=== PATIENT | male | born 2005 | race Caucasian/White ===

== ENCOUNTER 2025-08-20 23:22 | Observation (INO) | payer BC, SELFPAY ==
[2025-08-20 17:37] VITALS: BP 120/75
--- NOTE | 2025-08-20 18:33 | ED.GENMED ---
History of Present Illness
<FADI Amaya - Last Filed: 08/20/25 21:38>
General
Chief Complaint: Skin Problem
Source: patient
Exam Limitations: none
Time Seen by Provider: 08/20/25 18:07
Nursing documentation reviewed up to this point in time: agreed with
History of Present Illness
History of Present Illness:
Patient is a 20-year-old male brought to the ER by family for evaluation. On Tuesday patient reports he popped a pimple in his right nares and on Tuesday morning woke up with swelling to the area. On Tuesday he went to urgent care was given
Augmentin. Tuesday night however he developed chills and had a low-grade fever of 99 and went to [facility] emergency department. He reports while there he was given doxycycline iv and discharged with clindamycin. On Tuesday morning his swelling
became worse and he went back to the ER. He had a CAT scan which was negative for abscess. He was discharged on Keflex. AT That time he was given an IV antibiotic as well. He continues to complain of increasing facial swelling. Mom reports
swelling is actually getting worse. Mom reports patient's right side of his face is swelling as well as his upper lip. He did have the chills last night.
Phy Exam
<FADI Amaya - Last Filed: 08/20/25 21:38>
General Physical Exam
General Presentation: no apparent distress
General age: appears stated age
General Skin: warm and dry
General Habitus: normal
General Mental: alert
General Hydration: appears well hydrated
ENT Exam
ENT Exam: other (pt with visible pimple to right nares associated with right sided facial swelling ; + swelling to upper lip )
Neurological Exam
Neurological Exam: alert and oriented x3
Musculoskeletal Exam
Musculoskeletal Exam: full ROM
Skin Exam
Skin Exam: normal color and warm/dry
Psychiatric Exam
Psychiatric Exam: normal mood/affect
Course
<FADI Amaya - Last Filed: 08/20/25 21:38>
Orders/Labs/Results
Orders:
Orders
08/20/25 18:32
CT Facial Bones W/ Iv Contrast Urgent
Comment:
Reason For Exam: right sided facial swelling
IV Insert/Care/Rem.- Treatment PRN
08/20/25 18:42
Complete Blood Count/With Diff Urgent
Comprehensive Metabolic Panel Urgent
Abnormal Lab Results
08/20/25
18:42
RBC 4.67 L 10^6/uL
(4.70-6.10)
Hct 38.8 L %
(39.0-52.0)
Absolute Monos (auto) 0.8 H 10^3/uL
(0.1-0.6)
Monocytes % 9.4 H %
(1.7-9.3)
Carbon Dioxide 32 H mmol/L
(22-30)
BUN 8 L mg/dl
(9-20)
Glucose 103 H mg/dl
(70-99)
08/20/25 18:42
08/20/25 18:42
Vital Signs
Initial and Last Documented VS:
Initial Vital Signs
Temp Pulse Resp BP Pulse Ox
98.4 F 76 17 120/75 99
08/20/25 17:37 08/20/25 17:37 08/20/25 17:37 08/20/25 17:37 08/20/25 17:37
Last Documented Vital Signs
Temp Pulse Resp BP Pulse Ox
98.4 F 76 17 124/86 95
08/20/25 17:37 08/20/25 17:37 08/20/25 17:37 08/20/25 18:42 08/20/25 21:30
Engineering Manager consulted with Physician
Engineering Manager consulted with physician?: Yes
Name of Physician Consulted: Lux
<Tejas Wasserman, DO - Last Filed: 08/20/25 21:19>
Orders/Labs/Results
Orders:
Orders
08/20/25 18:32
CT Facial Bones W/ Iv Contrast Urgent
Comment:
Reason For Exam: right sided facial swelling
IV Insert/Care/Rem.- Treatment PRN
08/20/25 18:42
Complete Blood Count/With Diff Urgent
Comprehensive Metabolic Panel Urgent
Abnormal Lab Results
08/20/25
18:42
RBC 4.67 L 10^6/uL
(4.70-6.10)
Hct 38.8 L %
(39.0-52.0)
Absolute Monos (auto) 0.8 H 10^3/uL
(0.1-0.6)
Monocytes % 9.4 H %
(1.7-9.3)
Carbon Dioxide 32 H mmol/L
(22-30)
BUN 8 L mg/dl
(9-20)
Glucose 103 H mg/dl
(70-99)
08/20/25 18:42
08/20/25 18:42
Vital Signs
Initial and Last Documented VS:
Initial Vital Signs
Temp Pulse Resp BP Pulse Ox
98.4 F 76 17 120/75 99
08/20/25 17:37 08/20/25 17:37 08/20/25 17:37 08/20/25 17:37 08/20/25 17:37
Last Documented Vital Signs
Temp Pulse Resp BP Pulse Ox
98.4 F 76 17 124/86 95
08/20/25 17:37 08/20/25 17:37 08/20/25 17:37 08/20/25 18:42 08/20/25 21:30
<FADI Amaya - Last Filed: 08/20/25 21:38>
MDM/Problems Addressed
Differential Diagnosis Includes:
Not limited to facial cellulitis, abscess
MDM/Problems Addressed:
Patient with facial swelling CAT scan consistent with cellulitis despite patient being on antibiotics for the past several days. he was given IV push antibiotics at [facility] during 2 ER visits however despite Keflex and other recent
antibiotics patient has had worsening swelling over the right side of his face. This started with a pimple to his right nares. There is still a pimple noted in his right nares with obvious facial swelling and lip swelling. With worsening symptoms
despite normal labs and no fever here in the ER will admit. Patient has complained of chills. Patient evaluated by ED physician who agrees with assessment and plan.
<FADI Amaya - Last Filed: 08/20/25 21:38>
*Radiology
Radiology exam reviewed: radiology read reviewed
*Pulse Oximetry
SaO2: 99
Oxygen Mode of Delivery: Room air
Patient hypoxic: no
*Critical Care Note
Total Time (30-74mins, 75-104mins- exclusive of procedures): Not Applicable
ED Attending Note
<FADI Amaya - Last Filed: 08/20/25 21:38>
-
Portions of this chart may have been created with voice recognition software.� Occasional wrong word or��sound alike� substitutions may have occurred due to the inherent limitations of voice recognition software.
<Tejas Wasserman DO - Last Filed: 08/20/25 21:19>
ED Attending Note
Patient seen and examined by attending physician: Yes
I performed the substantive portion of visit, reviewed & personally made and approve the management plan that is documented in note by myself or MARCE.: Yes
ED Attending Note:
The patient has soft tissue swelling at the upper lip and more so on the right side of the face near the nasolabial fold. There is no palpable abscess and white count is normal. There is no visualized abscess on CT. However mother very concerned
that he is failing outpatient management. She states that the swelling gets worse and worse. Will plan IV antibiotics. He has already been to another ER twice without improvement and continues to worsen.
Discharge Plan
Departure
Patient Disposition: Admit
Date of Disposition: 08/20/25
Time of Disposition: 21:21
Admit to: Med/Surg
Admit to doctor: hospitalist
Presentation/result/management discussed w/ accepting MD/DO: Hospitalist
Patient with high blood pressure during this ER visit?: No
Condition: Fair
Covid-19: Not Applicable
Discharge Problem:
facial cellulitis
Referrals:
NONE,* [Family Provider, Internal Medicine]
Interventions
Interventions:
*Risk Screen - Suicide Last Done: 08/20/25 17:39
*General Assessment Last Done: 08/20/25 17:39
*Neglect/Abuse Screening Last Done: 08/20/25 17:39
*ED COVID-19 Vaccine History Last Done: 08/20/25 17:39
*ED Influenza Vaccine History Last Done: 08/20/25 17:39
Discharge Date and Time
Print Language: SWEDISH
[2025-08-20 18:42] VITALS: BP 124/86
[2025-08-20 18:43] VITALS: BMI 23.4
[2025-08-20 18:48] LABS: Hematocrit 38.8 % (39.0-52.0); Hemoglobin 13.4 g/dL (13.0-18.0); Mean Corp Hgb Conc. 34.5 g/dL (33.0-37.0); Mean Corpuscular Volume 83.1 fL (80.0-94.0); Nucleated Red Blood Cells % 0 % (-); Platelet Count 221 10^3/uL (130-400); Red Cell Dist. Width 13.2 % (11.5-14.5)
[2025-08-20 19:09] LABS: ALT (SGPT) 21 U/L (0-50); AST (SGOT) 24 U/L (17-59); Albumin 4.7 g/dl (3.5-5.0); Alkaline Phosphatase 62 U/L (38-126); Blood Urea Nitrogen 8 mg/dl (9-20); Calcium 9.7 mg/dl (8.4-10.2); Carbon Dioxide 32 mmol/L (22-30); Chloride 100 mmol/L (98-107); Estimated Creatinine Clearance > 125 ml/min; Glucose 103 mg/dl (70-99); Potassium 4.2 mmol/L (3.5-5.1); Sodium 138 mmol/L (135-145); Total Protein 8.0 g/dl (6.3-8.2); eGFR > 60.00
--- NOTE | 2025-08-20 22:15 | HPS.HSE ---
Family Physician
-
Family Physician: * NONE
Chief Complaint
-
facial cellulitis
History of Present Illness
Patient is a 20-year-old male with no significant past medical history who presented to [facility] ED for evaluation of facial cellulitis. Patient reports in grown hair or pimple in right nares on Tuesday afternoon that he popped. He reports waking
Tuesday morning with swelling to the area. Patient was seen Tuesday in Urgent Care and prescribed Augmentin, Tuesday evening he was seen in [facility] ED as he developed chills and a fever of 99. [facility] treated him with IV doxycycline and
discharged with prescription for clindamycin. Patient reports edema and pain increased and he returned to [facility] ED where he was administered another dose of IV doxycycline and discharged with instructions to continue clindamycin and added
Keflex. A CT scan was completed and negative for abscess. Mom is at bedside and reports that the swelling is significant to patients baseline and has increasingly got worse despite antibotic treatments. Denies difficulty breathing, numbness or
tingling.
Medical History
Past Medical History
Past Medical History: Reports Other
Additional Past Medical History:
acne
depression
Past Surgical History: Reports None
Social History
Tobacco: Non-smoker
Alcohol: Occasional
Drug: None
Personal: Single
Living: With Family
Employment: Other (stationary steam engineer student )
Family History
Family History: Other (Father: HTN, migraines; Mother: anxiety )
Allergies / Home Medications
Allergies reflects when Allergies were last updated in [facility].
Home Medications with original date entered in [facility]
Allergy/Medication List:
Allergies
Allergy/AdvReac Type Severity Reaction Status Date / Time
No Known Allergies Allergy Unverified 08/20/25 17:38
Home Medications
escitalopram oxalate 20 mg tablet 20 mg PO HS 08/20/25
isotretinoin 30 mg capsule 60 mg PO HS 08/20/25
Review of Systems
-
History Source: Patient
Constitutional: Reports Fever and Chills
EENT: Reports Mouth Pain, Mouth Swelling and Other (right facial edema and pain ); Denies Sore Throat
Respiratory: Denies Cough or Trouble Breathing
Cardiac: Denies Chest Pain, Diaphoresis, Palpitations or Syncope
Abdomen/GI: Denies Abdominal Pain, Nausea, Vomiting or Diarrhea
: Denies Dysuria, Frequency or Urgency
Musculoskeletal: Denies Joint Pain
Skin: Denies Rash
Neurological: Denies Dizzy, Headache, Weakness or Numbness
Hematologic/Lymphatic: Denies Bleeding
Physical Exam
Vital Signs
Vital Signs
Temp Pulse Resp BP Pulse Ox
98.4 F 76 17 124/86 95
08/20/25 17:37 08/20/25 17:37 08/20/25 17:37 08/20/25 18:42 08/20/25 21:30
Physical Exam
General: Well Developed, Well Nourished, No Apparent Distress, Comfortable and Conversant
HEENT: NormoCephalic and Moist mucous membranes
Respiratory: Clear and Non Labored Respirations; No Wheezes
Cardiac: S1/S2 and Regular Rhythm; No Murmur, Rub or Gallop
GI: Soft, Non Tender, Non Distended and Normal Bowel Sounds
Musculoskeletal: No Clubbing, No Cyanosis and No Edema
Skin: Warm and IV/Catheter Site
Neuro: Awake and AO x 3
Hematologic/Lymphatic: No Lymphadenopathy
Psych: Calm
Laboratory Results
-
08/20/25 18:42
08/20/25 18:42
Laboratory Results
Total Bilirubin 0.4 mg/dl (0.2-1.3) 08/20/25 18:42
AST 24 U/L (17-59) 08/20/25 18:42
ALT 21 U/L (0-50) 08/20/25 18:42
Alkaline Phosphatase 62 U/L (38-126) 08/20/25 18:42
Data Reviewed
-
CT Scan: Report Reviewed by me (Facial bones: 1. Mild right cheek cellulitis. No loculated fluid collections or suspicious dental findings.)
Lab Data: Labs Reviewed by me
Impression/Plan
-
IMPRESSION/PLAN:
#facial cellulitis 2/2 pimple/in-grown hair popped
Facial bones CT: 1. Mild right cheek cellulitis. No loculated fluid collections or suspicious dental findings.
MRSA screen: pending
- Admit to med/surg
- IV vanco
- supportive care
#acne
- continue isotretinoin
#depression
- continue escitalopram
Code status: full code
DVT prophylaxis: lovenox sq
--- NOTE | 2025-08-20 22:20 | W.PN.UPDATE ---
Update Note
Progress Note Update
Patient seen in conjunction with FADI. I agree with the findings and history and physical. I concur with assessment and plan.
Briefly, this is a 20-year-old with no known signal past medical history who presents to the emergency department with worsening persistent swelling and redness over the right maxillary and inferior orbital face. Patient and family reports that
symptoms began about 4 days ago and he was seen at outside hospital on Tuesday started on IV antibiotics. He initially did get documenting at urgent care prior to arrival in the emergency department and family reported that he never responded to
oxacillin based medications. Ultimately was given IV doxycycline in the emergency department. Later on he was given clindamycin and Keflex. Despite antibiotics over the last 24 hours family reports that has been increasing redness and swelling.
He reports subjective fevers. Reports some tenderness to palpation. He denies any recent trauma. He denies any recent tooth infection. He apparently had evaluation for sore throat a few weeks ago and was treated with doxycycline at that time.
In the Emergency Department he was afebrile hemodynamically stable and in no acute distress. Blood pressure 120/80 with a pulse 76 satting 98% on room air. CT face is negative for any abscess or fluid collection. CBC is unremarkable. Electrolyte
BUN/creatinine were normal.
Assessment and plan
- Right facial/preseptal cellulitis -hemodynamically stable and in no acute distress however appears to have failed oral antibiotics although it appears that not enough time being given. He states he does not respond to amoxicillin or Augmentin in
the past, he has been on clindamycin now with ongoing symptoms. No signs of abscess, no fluid collection on CT facial.
- Admit to MedSurg observation
- Blood cultures afebrile
- IV vancomycin for now
- ID consultation
DVT prophy�SCDs
CODE STATUS�full code
[2025-08-21 01:36] VITALS: BP 129/75
[2025-08-21 01:37] VITALS: BMI 20.1
[2025-08-21] MEDS: VANCOCIN 540 MG IV (01:52)
[2025-08-21] MEDS: BENADRYL 25 MG IV (04:21)
--- NOTE | 2025-08-21 04:22 | W.PN.UPDATE ---
Update Note
Progress Note Update
Patient developed redness on his face, shoulders and upper back and pruritus while Vancomycin infusing. Vancomycin stopped by RN. Benadryl 25 mg IV x 1 ordered for reaction.
Patient states he has no SOB, scratchy throat, palpitations. Discussed w/admitting provider, Vancomycin discontinued, ordered Ceftriaxone 1 gram IV daily and Metronidazole 500 mg IV Q8H. ID consulted.
--- NOTE | 2025-08-21 05:35 | PTCARENOTE ---
08/21: pt placed on vancocin iv for cellulitis. antibiotics infused. pt skin became red and itchy. Complaints of itching scalp. community support associate notified. pt given iv benadryl
[2025-08-21] MEDS: STERILE WATER FOR INJECTION 10 ML IV (05:59)
[2025-08-21] MEDS: ROCEPHIN 1000 MG IV (05:59)
[2025-08-21] MEDS: FLAGYL 500 MG 100 IV (06:30)
[2025-08-21 07:00] VITALS: BP 118/66
--- NOTE | 2025-08-21 09:59 | W.PN.HOSP.TC ---
Today's Communication/Plan
-
see PN
Assessment / Plan
Assessment / Plan
20yo M with PMHX of severe acne on retinoids and anxiety came with 5 days of worsening R face redness and swelling accompanied with fevers. Started with pimple in the R nostril that broke. Patient went to urgent care first, was prescribed Augmentin,
but took only one dose and since had fevers 5 hours later - went to [facility] ED. Had Doxy IV and discharged on Clindamycin, took 4 doses and went to ED again since swelling did not improve, was given one more IV Doxy anddischarged on Keflex, took 4
doses of it and since swelling was still persistent - cme to ED. DUring Vanco injection dveloped 'red man' reaction.
A/P:
#R fascial cellulitis
orbits not involved
CT with cellulitis only
Patient does not report tooth ache
No leukocytosis, no left shift on CBC
With multiple Abx switchs - unlikely failure
ID consult placed upon admission - will await their opinion so not to do multiple Abx changes
Currently on Rocephin/Flagyl after red man reaction
MRSA screen pending
#EKG with diffuse J point elevation
no chest pain noted
#Anxiety/depression d/o
#Severe acne
cont home meds
EKG with non-prolonghed QTc of 411ms
DVT ppx - enourage ambulation
FUll code
I have spent at least 51min reviewing chart, test results, communication with consultants and providing direct patient care
Anticipated Discharge: Within 24 hours
Subjective/Interval History
-
Date of Service: August 21, 2025
Objective Data
-
Vital Signs:
Vital Signs
Temp Pulse Resp BP Pulse Ox
97.7 F 61 20 118/66 95
08/21/25 07:00 08/21/25 07:00 08/21/25 07:00 08/21/25 07:00 08/21/25 07:00
I&O
08/20/25 08/21/25 08/22/25
06:59 06:59 06:59
Intake Total 240 / 240
Balance 240 / 240
Review of Systems
-
History Source: Patient
All other systems: Reviewed and negative
Physical Exam
-
General: No Apparent Distress
HEENT: Normocephalic and Other (minimal R cheek swelling)
GI: Soft, Nontender and Nondistended
Skin: Warm
Neuro: Awake, Alert, Oriented and AO x 3
Psych: Calm
--- NOTE | 2025-08-21 12:10 | CON.ID ---
Consultation
-
Date/Time Consultation Requested: 08/21/25 4:25
Date/Time Consultation Performed: 08/21/25 12:11
Requesting Provider: Mariely AUSTIN
Performing Provider: Dr Barber
Reason for Consultation: facial cellulitis, failed O/P tx, reaction to vancomycin
Chief Complaint / Past History
Chief Complaint
facial cellulitis
History of Present Illness
Mr Knapp is a 20 year old male without significant past medical history who presented to here for evaluation of facial cellulitis. Patient reports in grown hair or pimple in right nares on Tuesday afternoon that he popped. He reports waking
Tuesday morning with swelling to the area. Patient was seen Tuesday in Urgent Care and prescribed Augmentin, Tuesday evening he was seen in [facility] ED as he developed chills and a fever of 99. [facility] treated him with IV doxycycline and
discharged with prescription for clindamycin and doxycycline. Patient reports edema and pain increased and he returned to [facility] ED where he was administered another dose of IV doxycycline and discharged with instructions to continue clindamycin
and added Keflex. A CT scan was completed and negative for abscess. Mom reports that the swelling is significant to patients baseline and has increasingly got worse despite antibiotic treatments. Denies difficulty breathing, numbness or tingling.
No trauma or tooth infections Then after admission here he was started on vancomycin however developed red man syndrome which was treated with benadryl and stopping the infusion. The antibiotics were switched to ceftriaxone and metronidazole. ID
is consulted for assistance with management.
Past History
Additional Past Medical History:
acne
depression
Past Surgical History: None
Allergy History:
No Known Allergies Allergy (Unverified 08/20/25 17:38)
Medications Reviewed: Yes
Social History
Tobacco: Non-Smoker
Alcohol: Occasional
Drug: None
Family History
Family History: Not Pertinent
Review of Systems
Review of Systems
General: Fever and Chills
EENT: Reports Mouth Pain, Mouth Swelling and Other (right facial edema and pain); Denies Sore Throat
Respiratory: Denies Cough or Trouble Breathing
Cardiac: Denies Chest Pain, Diaphoresis, Palpitations or Syncope
Abdomen/GI: Denies Abdominal Pain, Nausea, Vomiting or Diarrhea
: Denies Dysuria, Frequency or Urgency
Musculoskeletal: Denies Joint Pain
Skin: Denies Rash
Neurological: Denies Dizzy, Headache, Weakness or Numbness
Hematologic/Lymphatic: Denies Bleeding
Vital Signs
Temp Pulse Resp BP Pulse Ox
97.7 F 61 20 118/66 95
08/21/25 07:00 08/21/25 07:00 08/21/25 07:00 08/21/25 07:00 08/21/25 07:00
Physical Exam
Physical Exam
Constitutional: No Acute Distress
Head: Other (mild swelling within the R nare, external face no swelling tenderness or drainage)
Cardiovascular: Regular Rate and S1/S2; Negative Murmur or Rub
Pulmonary: Clear and Symmetric; Negative Wheezes, Rales or Rhonchi
Gastrointestinal: Soft, Non Tender, Non Distended and Normal Bowel Sounds
Skin: Warm and Dry; Negative Rash or Jaundice
Lab / Diagnostic Study Results
08/20/25 18:42
08/20/25 18:42
Abs Immat Gran (auto) 0.0 10^3/uL (0-0.05) 08/20/25 18:42
Absolute Neuts (auto) 5.2 10^3/uL (1.4-6.5) 08/20/25 18:42
Absolute Lymphs (auto) 2.6 10^3/uL (1.2-3.4) 08/20/25 18:42
Absolute Monos (auto) 0.8 10^3/uL (0.1-0.6) H 08/20/25 18:42
Absolute Basos (auto) 0.0 10^3/uL (0-0.2) 08/20/25 18:42
Immature Gran % 0.3 % (0-0.5) 08/20/25 18:42
Neutrophils % 59.3 % (42.2-75.2) 08/20/25 18:42
Lymphocytes % 29.4 % (20.5-51.1) 08/20/25 18:42
Monocytes % 9.4 % (1.7-9.3) H 08/20/25 18:42
Eosinophils % 1.4 % (0-6) 08/20/25 18:42
Basophils % 0.2 % (0-2) 08/20/25 18:42
Microbiology Results
Micro:
08/21/25 01:41 MRSA Screen - Pending
Nose
Assessment / Plan
Facial Cellulitis - mild
- restart vancomycin - run slowly for history of red man syndrome
- a MRSA screen is also pending
- stop ceftriaxone/metronidazole
- likely transition to bactrim in a day or so when symptoms begin to improve
--- NOTE | 2025-08-21 12:46 | PHA.VAN.IN ---
Assessment
- Assessment
Renal Function: Appears similar to baseline
AUC Dosing Plan
- Dosing Variables
Dosing Weight (kg): 67
Dosing CrCl (ml/min): 125
Vd coefficient (L/kg): 0.7
- Empiric Dosing
Initial / Loading Dose: 2000mg - 08/21 01:52 - infusion stopped early due to infusion reaction
Maintenance Regimen: Vanc 750mg Q8H infused over 90 minutes
Estimated AUC (mcg*h/mL): 468
Estimated Peak (mcg*h/mL): 27.6
Estimated Trough (mcg/ml): 13
Estimated Half Life (H): 6.4
- Monitoring
No levels ordered at this time: consider levels in next few days
Pharmacokinetics Vancomycin I
- -
Patient Age: 20
Patient Sex: Male
Vancomycin Day #: 1
Indication: Skin And Soft Tissue
Requesting Provider: Dr. Barber
Pertinent Antimicrobial Allergies:
NKDA
Height / Weight:
Height 6 ft
Actual Weight 67.177 kg
- Vital Signs / Lab Results
Temp Pulse Resp BP Pulse Ox
97.7 F 61 20 118/66 95
08/21/25 07:00 08/21/25 07:00 08/21/25 07:00 08/21/25 07:00 08/21/25 12:23
Lab Results - Hematology
08/20/25
18:42
WBC 8.8
Lab Results - Chemistry
08/20/25
18:42
BUN 8 L
Creatinine 0.9
Estimated Creat Clear > 125
Albumin 4.7
[2025-08-21] MEDS: VANCOCIN 150 IV ×2 (13:38→21:18)
--- NOTE | 2025-08-21 13:55 | CM ---
Reviewed the chart notes and spoke with the patient and his mother at the bedside. The patient is admitted under observational status. The observational letter was provided and explained. The patient had no questions with regards to the letter.
The patient resides with his mother when not in school in a two story home with one step to enter. The patient reports no DME/VN/SNF int he past. The patient confirmed his pharmacy of choice is [facility] [address] [facility] [address] [place]. RODRIGUEZ
continues to be available to patient/family and is monitoring medical plan for needs at discharge.
Plan: Discharge to home when medically stable. No needs anticipated at this time.
[2025-08-21 15:30] VITALS: BP 118/77
--- NOTE | 2025-08-21 15:33 | PTCARENOTE ---
Vancomycin 750mg IV administered at reduced rate of 100ml/hr per order. No new redness observed. Pt denies pruritus.
[2025-08-21] MEDS: LOVENOX 40 MG SC (17:19)
[2025-08-21] MEDS: LEXAPRO 20 MG PO (21:18)
[2025-08-21 23:25] VITALS: BP 121/71
--- NOTE | 2025-08-22 02:11 | VATNOTE ---
Called by PCN to evaluate Right AC IV site due to redness and Pain no swelling noted at or around site. Vanco infusing advised to stop infusion. New line placed Right AC line d/c heat applied with elevation. Will continue to monitor area.
[2025-08-22] MEDS: VANCOCIN 150 IV ×2 (05:55→14:24)
[2025-08-22 07:00] VITALS: BP 116/67
--- NOTE | 2025-08-22 08:33 | W.PN.ID1 ---
Date of Service
Date of Service: August 22, 2025
Today's Communication
- transition to bactrim for a 7 day course
Assessment / Plan
Facial Cellulitis - mild
- transition to bactrim for a 7 day course
- note negative mrsa screen
Chief Complaint
-: Other (facial cellulitis)
Subjective / Review of Systems
afebrile
bp stable
tolerating current therapies
'I feel much better'
Vital Signs / Physical Exam
Vital Signs
Vital Signs
Temp Pulse Resp BP Pulse Ox
97.9 F 70 20 121/71 97
08/21/25 23:25 08/21/25 23:25 08/21/25 23:25 08/21/25 23:25 08/21/25 23:25
Physical Exam
Constitutional: No Acute Distress
Head: Other (small area of induration within the R nare)
Cardiovascular: Regular Rate and S1/S2; Negative Murmur or Rub
Pulmonary: Clear and Symmetric; Negative Wheezes or Rales
Gastrointestinal: Soft, Non Tender, Non Distended and Normal Bowel Sounds
Skin: Warm and Dry; Negative Rash or Jaundice
Objective Data
Lab Data
Lab Results
08/20/25 18:42
08/20/25 18:42
Estimated Creat Clear > 125 ml/min 08/20/25 18:42
Total Bilirubin 0.4 mg/dl (0.2-1.3) 08/20/25 18:42
AST 24 U/L (17-59) 08/20/25 18:42
ALT 21 U/L (0-50) 08/20/25 18:42
Alkaline Phosphatase 62 U/L (38-126) 08/20/25 18:42
Most recent labs reviewed.
Micro Results:
08/21/25 01:41 MRSA Screen - Pending
Nose
Care Review
Plan reviewed with: Physician (Dr De Santiago - antibiotics)
--- NOTE | 2025-08-22 09:52 | CM ---
Reviewed the chart notes. CM continues to be available to patient/family and is monitoring medical plan for needs at discharge.
Plan: Discharge to home when medically stable. No needs anticipated at this time.
--- NOTE | 2025-08-22 12:00 | W.PN.HOSP.TC ---
Today's Communication/Plan
-
pending final ID reccs
Assessment / Plan
Assessment / Plan
20yo M with PMHX of severe acne on retinoids and anxiety came with 5 days of worsening R face redness and swelling accompanied with fevers. Started with pimple in the R nostril that broke. Patient went to urgent care first, was prescribed Augmentin,
but took only one dose and since had fevers 5 hours later - went to [facility] ED. Had Doxy IV and discharged on Clindamycin, took 4 doses and went to ED again since swelling did not improve, was given one more IV Doxy and discharged on Keflex, took 4
doses of it and since swelling was still persistent - cme to ED. During Vanco injection developed 'red man' reaction, however tolerated slower rate as recommended by ID. As discussed with ID - with significant improvement reasonable to dc on
Bactrim for 7 days home
A/P:
#R fascial cellulitis
orbits not involved
CT with cellulitis only
Patient does not report tooth ache
No leukocytosis, no left shift on CBC
With multiple Abx switch - unlikely failure
ID consult placed upon admission - Vanco, pending final reccs
Currently on Rocephin/Flagyl after red man reaction
MRSA screen neg
#EKG with diffuse J point elevation
no chest pain noted
#Anxiety/depression d/o
#Severe acne
cont home meds
EKG with non-prolonged QTc of 411ms
DVT ppx - encourage ambulation
FUll code
I have spent at least 36min reviewing chart, test results, communication with consultants and providing direct patient care
Anticipated Discharge: Within 24 hours
Subjective/Interval History
-
Date of Service: August 22, 2025
Objective Data
-
Vital Signs:
Vital Signs
Temp Pulse Resp BP Pulse Ox
97.8 F 80 20 116/67 97
08/22/25 07:00 08/22/25 07:00 08/22/25 07:00 08/22/25 07:00 08/22/25 07:00
I&O
08/21/25 08/22/25 08/23/25
06:59 06:59 06:59
Intake Total 240 / 240 2019
Balance 240 / 240 2019
Review of Systems
-
History Source: Patient
All other systems: Reviewed and negative
Physical Exam
-
General: No Apparent Distress
HEENT: Normocephalic and Good Dentition
Neuro: Awake, Alert, Oriented and AO x 3
Psych: Calm
--- NOTE | 2025-08-22 14:55 | W.DCSUMMARY ---
Discharge Summary
Discharge Data
Date of Admission: 08/20/25
Date of Discharge: 08/22/25
-
Pending Results: No
Hospital Course
20yo M with PMHX of severe acne on retinoids and anxiety came with 5 days of worsening R face redness and swelling accompanied with fevers. Started with pimple in the R nostril that broke. Patient went to urgent care first, was prescribed Augmentin,
but took only one dose and since had fevers 5 hours later - went to [facility] ED. Had Doxy IV and discharged on Clindamycin, took 4 doses and went to ED again since swelling did not improve, was given one more IV Doxy and discharged on Keflex, took 4
doses of it and since swelling was still persistent - cme to ED. During Vanco injection developed 'red man' reaction, however tolerated slower rate as recommended by ID. As discussed with ID - with significant improvement reasonable to dc on
Bactrim for 7 days home
I have spent at least 36min reviewing chart, test results, communication with consultants and providing direct patient care
Patient was managed for:
#R fascial cellulitis
#EKG with diffuse J point elevation
#Anxiety/depression d/o
#Severe acne
Discharge Plan
-
Patient Disposition: Home (Routine Discharge)
Discharge Diagnosis/Procedures: fascial cellulitis
Diet: Regular
Activity: As tolerated
Referrals:
NONE,* [Family Provider, Internal Medicine]
Prescriptions:
New
sulfamethoxazole-trimethoprim [Bactrim DS] 800-160 mg tablet
1 tab PO Q12H Qty: 14 0RF
Continued
escitalopram oxalate 20 mg tablet
20 mg PO HS
isotretinoin 30 mg capsule
60 mg PO HS
Discharge Orders:
Discharge Patient (As Directed); Ordered 08/22/25
Ordered By: Liborio De Santiago
Discharge Date and Time
Print Language: MONEGASQUE
[2025-08-22 15:30] VITALS: BP 126/70
--- NOTE | 2025-08-22 16:22 | PHA.VAN.FU ---
Vancomycin Assessment / Plan
- Assessment
Renal Function: No New Labs Today
- Dosing Plan
Continue: Vanc 750mg Q8H
- Monitoring Plan
No level(s) ordered at this time: planned to be discharged on PO antibiotics
Monitoring Comments: will obtain levels if vanco course prolonged
- Follow Up
Pharmacy will continue to follow.
Vancomycin Follow UP
- -
Patient Age: 20
Patient Sex: Male
Vancomycin Day #: 2
Indication: Skin And Soft Tissue
Requesting Provider: Dr. Barber
Pertinent Antimicrobial Allergies:
NKDA
Height / Weight:
Height 6 ft
Actual Weight 67.177 kg
- Vital Signs / Lab Results
Temp Pulse Resp BP Pulse Ox
97.5 F 69 20 126/70 97
08/22/25 15:30 08/22/25 15:30 08/22/25 15:30 08/22/25 15:30 08/22/25 15:30
Lab Results - Hematology
08/20/25
18:42
WBC 8.8
Lab Results - Chemistry
08/20/25
18:42
BUN 8 L
Creatinine 0.9
Estimated Creat Clear > 125
Albumin 4.7
Microbiology Results
08/21/25 01:41 MRSA Screen - Final
Nose No Methicillin Resistant Staphylococcus aureus isolated.
== END 2025-08-22 18:13 | disposition home or self-care (01) ==
LOC: 2 NORTH 23:22
PROVIDERS: Nurse Practitioner; ADMITTING PHYSICIAN Internal Medicine; ATTENDING PHYSICIAN Internal Medicine; CONSULT PHYSICIAN Student in an Organized Health Care Education/Training Program; EMERGENCY PHYSICIAN Emergency Medicine
DX: L03.211 Cellulitis of face (principal); F32.A Depression, unspecified; F41.9 Anxiety disorder, unspecified; L70.9 Acne, unspecified
CPT/HCPCS: 70487; 80053; 85025; 87070; 93005; 99284; G0378; Q9967